=== PATIENT | female | born 1955 | race Caucasian/White ===

== ENCOUNTER 2018-01-21 12:04 | Day surgery (SDC) | payer OTHER ==
[~2018-01-21 12:04] MED LIST: CEFAZOLIN 2 GM/50 ML (PMX) 50 ML IVPB; LACTATED RINGER'S 1,000 ML IV*; LIDOCAINE 2% (SDV) 5 ML INJ; SUCCINYLCHOLINE CHLORIDE 100 MG/5 ML SYG IV
[2018-01-21] MEDS ORDERED: ROPIVACAINE 0.5 % 30 ML VIAL (17:03)
[2018-01-21] MEDS ORDERED: MIDAZOLAM 1 MG/ML 2 ML INJ (17:03)
[2018-01-21] MEDS ORDERED: PROPOFOL 20 ML (17:28)
[2018-01-21] MEDS ORDERED: ROCURONIUM 50 MG INJ (17:28)
[2018-01-21] MEDS ORDERED: CEFAZOLIN 1 GM INJ (17:28)
[2018-01-21] MEDS ORDERED: SUGAMMADEX SODIUM 200 MG/2 ML VIAL IV (17:29)
[2018-01-21] MEDS: POLYMYXIN/BACITRACIN 1L IRRIG IRR (17:40)
[2018-01-21] MEDS ORDERED: MEPERIDINE 25 MG INJ IV (18:00)
[2018-01-21] MEDS ORDERED: FENTAnyl 50 MCG/ML VIAL IV ×2 (18:00)
[2018-01-21] MEDS ORDERED: ONDANSETRON 4 MG INJ IV (18:00)
[2018-01-21] MEDS ORDERED: DIPHENHYDRAMINE 50 MG INJ IV (18:00)
[2018-01-21] MEDS ORDERED: METOCLOPRAMIDE 10 MG INJ IV (18:00)
[2018-01-21] MEDS ORDERED: HYDROmorphONE 1 MG/5 ML IV SYRINGE IV ×2 (18:00)
== END 2018-01-21 20:08 | disposition home or self-care (01) ==
LOC: SDS 12:04
DX: S52.201D Unspecified fracture of shaft of right ulna, subsequent encounter for closed fracture with routine healing (principal); X58.XXXD Exposure to other specified factors, subsequent encounter; E11.9 Type 2 diabetes mellitus without complications; E78.5 Hyperlipidemia, unspecified
CPT/HCPCS: 25545; 73090-RT; 82962